=== PATIENT | male | born 1990 | race Caucasian/White ===

== ENCOUNTER 2017-05-26 13:54 | Inpatient (IN) | payer OTHER ==
[2017-05-26 15:58] VITALS: BMI 24.7
--- NOTE | 2017-05-26 20:28 | HP ---
Admission [facility] [place] [facility] Chief Complaint: SEEKING REHAB SERVICES TO ASSIST WITH COCAINE AND CANNABIS ADDICTION Allergies/Adverse Reactions: Allergies Allergy/AdvReac Type Severity Reaction Status Date / Time No Known Allergies Allergy Verified 05/26/17 20:19 History of Present Illness: 27 Y.O. MALE WITH COCAINE AND CANNABIS DEPENDENCE HERE FOR REHAB SERVICES. CLIENT REPORTS LONGEST CLEAN TIME 3-4 MONTHS. DENIES LEGALS. STATES LAST SUBSTANCE ABUSE TXMENT 1 YEAR AGO. Exam Limitations: No Limitations - Ebola screening Have you traveled outside of the country in the last 21 days: No Have you had contact with anyone from an Ebola affected area: No Have you been sick,other than usual withdrawal symptoms: No Do you have a fever: No - Review of Systems Constitutional: Chills, Loss of Appetite, Night Sweats, Changes in sleep EENT: reports: No Symptoms Reported Respiratory: reports: No Symptoms reported Cardiac: reports: No Symptoms Reported GI: reports: No Symptoms Reported : reports: No Symptoms Reported Musculoskeletal: reports: Back Pain, Neck Pain (R/T SCOLIOSIS), Other (SCOLIOIS) Integumentary: reports: No Symptoms Reported Neuro: reports: No Symptoms reported Endocrine: reports: No Symptoms Reported Hematology: reports: No Symptoms Reported Psychiatric: reports: Anxious, Depressed Other Systems: Reviewed and Negative Patient History - Patient Medical History Hx Anemia: No Hx Asthma: No Hx Chronic Obstructive Pulmonary Disease (COPD): No Hx Cancer: No Hx Cardiac Disorders: Yes (TACHYCARDIA ON METOPROLOL) Hx Congestive Heart Failure: No Hx Hypertension: Yes (METOPROLOL) Hx Hypercholesterolemia: No Hx Pacemaker: No HX Cerebrovascular Accident: No Hx Seizures: No Hx Dementia: No Hx Diabetes: No Hx Gastrointestinal Disorders: No Hx Liver Disease: No Hx Genitourinary Disorders: No Hx Sexually Transmitted Disorders: No Hx Renal Disease (ESRD): No Hx Thyroid Disease: No Hx Human Immunodeficiency Virus (HIV): No Hx Hepatitis C: No Hx Depression: Yes Hx Suicide Attempt: No Hx Bipolar Disorder: Yes Hx Schizophrenia: No Other Medical History: ANXIETY - Patient Surgical History Past Surgical History: No - PPD History Previous Implant?: Yes Documented Results: Negative w/o proof Implanted On Prior [facility] Admission?: No PPD to be Administered?: Yes - Smoking Cessation Smoking history: Current every day smoker Have you smoked in the past 12 months: Yes Cigars Per Day: 0 Hx Chewing Tobacco Use: No Initiated information on smoking cessation: Yes 'Breaking Loose' booklet given: 05/26/17 - Substance & Tx. History Hx Alcohol Use: No Hx Substance Use: Yes Substance Use Type: Cocaine, Marijuana Hx Substance Use Treatment: Yes (DOES NOT RECALL) - Substances Abused THC Route: Smoking Frequency: 1-3 times last 30 days Amount used: 1 JOINT Age of first use: 10 Date of Last Use: 05/19/17 COCAINE Route: Smoking Frequency: 3-6 times per week Amount used: $100 Age of first use: 14 Date of Last Use: 05/26/17 Family Disease History - Family Disease History Family Disease History: Diabetes: Grandparent, Other: Father (ALCOHOLIC IN RECOVERY), Sister (DRUGS IN RECOVERY) Admission Physical Exam S - Vital Signs Vital Signs: Vital Signs - 24 hr 05/26/17 15:56 Temperature 97.7 F Pulse Rate 60 Respiratory 18 Rate Blood Pressure 107/68 - Physical General Appearance: Yes: Appropriately Dressed, Anxious, Other (TALKATIVE) HEENTM: Yes: EOMI, Normocephalic, Normal Voice, MACARIO, Pharynx Normal Respiratory: Yes: Chest Non-Tender, Lungs Clear, Normal Breath Sounds, No Respiratory Distress, No Accessory Muscle Use Neck: Yes: No masses,lesions,Nodules, Supple, Trachea in good position Breast: Yes: Breast Exam Deferred Cardiology: Yes: Regular Rhythm, Regular Rate, S1, S2 Abdominal: Yes: Normal Bowel Sounds, Non Tender, Flat, Soft Genitourinary: Yes: Within Normal Limits Back: Yes: Normal Inspection Musculoskeletal: Yes: full range of Motion, Gait Steady Extremities: Yes: Normal Capillary Refill, Normal Inspection, Normal Range of Motion, Non-Tender Neurological: Yes: 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 NML intact, Fully Oriented, Alert, Motor Strength 5/5 Integumentary: Yes: Normal Color, Dry, Warm Lymphatic: Yes: Within Normal Limits - Diagnostic (1) Cocaine abuse, uncomplicated Current Visit: Yes Status: Chronic (2) Cannabis abuse, uncomplicated Current Visit: Yes Status: Chronic (3) Nicotine dependence Current Visit: Yes Status: Chronic Qualifiers: Nicotine product type: cigarettes Substance use status: uncomplicated Qualified Code(s): F17.210 - Nicotine dependence, cigarettes, uncomplicated (4) HTN (hypertension) Current Visit: Yes Status: Chronic Qualifiers: Hypertension type: essential hypertension Qualified Code(s): I10 - Essential (primary) hypertension (5) Tachycardia Current Visit: Yes Status: Chronic Cleared for Admission [facility] - Detox or Rehab Detox Regimen/Protocol: Not Applicable Claeared for Rehab Admission: Yes [facility] Breath Alcohol Content Breath Alcohol Content: 0 Urine Drug Screen - Results Drug Screen Negative: Yes Inpatient Rehab Admission - Initial Determination Are CD services needed?: Yes Free of communicable disease: Yes Not in need of hospitalization: Yes - Rehab Admission Criteria Previous failed treatment: Yes Poor recovery environment: Yes Comorbidities: Yes Lacks judgement: Yes Patient is meeting Inpatient Rehab admission criteria:: Yes
[2017-05-26] MEDS ORDERED: ACETAMINOPHEN 325 MG TABLET (FP) PO PRN (20:41)
[2017-05-26] MEDS ORDERED: MAGNESIUM CITRATE 300 ML BOTTLE PO PRN (20:41)
[2017-05-26] MEDS ORDERED: LOPERAMIDE HCL 2 MG CAPSULE PO PRN (20:41)
[2017-05-26] MEDS ORDERED: IBUPROFEN 400 MG TABLET (FP) PO PRN (20:41)
[2017-05-26] MEDS ORDERED: MAG HYDROX/AL HYDROX/SIMETH 30 ML UNIT-DOSE CUP PO PRN (20:41)
[2017-05-26] MEDS ORDERED: P-EPHED 60MG/TRIPROLIDI 2.5MG TABLET PO PRN (20:41)
[2017-05-26] MEDS ORDERED: MENTHOL/PHENOL 1 EACH UD MM PRN (20:41)
[2017-05-26] MEDS ORDERED: hydrOXYzine PAMOATE 50 MG CAPSULE (FP) PO PRN (20:41)
[2017-05-26] MEDS ORDERED: guaiFENesin/D-METHORPHAN HB 10 ML UNIT-DOSE CUPS PO PRN (20:41)
[2017-05-26] MEDS ORDERED: MAGNESIUM HYDROX 2400MG/30ML ORAL SUSPENSION 30 ML CUP PO PRN (20:41)
[2017-05-26] MEDS ORDERED: TUBERCULIN PPD 5 TU/0.1ML VIAL ID ONE (23:51)
[2017-05-26] MEDS: THIAMINE HCL 100 MG TABLET (FP) PO SCH (23:51)
[2017-05-27 02:19] LABS: URINE APPEARANCE SLCLOUDY; URINE BILIRUBIN NEGATIVE (NEGATIVE); URINE BLOOD NEGATIVE (NEGATIVE); URINE COLOR YELLOW; URINE GLUCOSE (UA) NEGATIVE (NEGATIVE); URINE KETONE NEGATIVE (NEGATIVE); URINE LEUK ESTERASE NEGATIVE (NEGATIVE); URINE NITRITE NEGATIVE (NEGATIVE); URINE PROTEIN NEGATIVE (NEGATIVE); URINE UROBILINOGEN NEGATIVE mg/dL (0.2-1.0)
[2017-05-27 10:07] LABS: HEMATOCRIT 42.5 % (35.4-49); HEMOGLOBIN 14.3 GM/dL (11.7-16.9); MCH 29.9 pg (25.7-33.7); MCHC 33.8 g/dl (32.0-35.9); MEAN CELL VOLUME 88.6 fl (80-96); MEAN PLT VOLUME 10.2 fl (7.5-11.1); PLATELET COUNT 163 K/MM3 (134-434); RDW 12.7 % (11.9-15.9); WHITE BLOOD COUNT 10.5 K/mm3 (4.0-10.0)
[2017-05-27 10:12] LABS: CHLORIDE 103 mmol/L (98-107); POTASSIUM 3.9 mmol/L (3.5-5.1); SODIUM 141 mmol/L (136-145)
[2017-05-27] MEDS: NICOTINE 14 MG/24 HOURS TOPICAL PATCH TD SCH (10:18)
[2017-05-27] MEDS: PRENATAL VITAMINS W/ FOLIC ACID TABLET (FP) PO SCH (10:18)
[2017-05-27 10:34] LABS: ALBUMIN 3.7 g/dl (3.4-5.0); ALK PHOS 57 U/L (45-117); ANION GAP 9 (8-16); BILIRUBIN,TOTAL 0.7 mg/dL (0.2-1.0); BLOOD UREA NITROGEN 18 mg/dL (7-18); CALCIUM 8.5 mg/dL (8.5-10.1); CO2 29 mmol/L (21-32); CREATININE 1.1 mg/dL (0.7-1.3); GLUCOSE,RANDOM 139 mg/dL (74-106); SGOT/AST 12 U/L (15-37); SGPT/ALT 22 U/L (12-78); TOT PROT 6.9 g/dl (6.4-8.2)
--- NOTE | 2017-05-27 11:05 | HP ---
Psychiatrist Admission - Data Date of interview: 05/27/17 Admission source: [facility] Identifying data: This is the first 5N inpatient rehabilitation admission for this 27 year old single male, unemployed and domiciled. Medical History: back pain, neck pain related to scoliosis, tachycardia , smokes cigarettes 10 a day. Psychiatric History: Patient reports first psychiatric contact at age of 6, to address hyperactivity, was treated with Ritalin, reports one involuntary hospitalization 2 years ago in [place] due to depressed mood and suicidal thoughts. Reports was diagnosed as Bipolar disorder and treated with buspar, seroquel and other medications, he reports he currently on adderall and klonopin. Patient is hyperproductive, unable to sleep. Physical/Sexual Abuse/Trauma History: Denies history of abuse. Vital Signs: Vital Signs - 24 hr 05/26/17 05/27/17 05/27/17 15:56 00:02 03:30 Temperature 97.7 F 97.5 F L Pulse Rate 60 73 Respiratory 18 18 16 Rate Blood Pressure 107/68 117/69 05/27/17 06:19 Temperature 97.9 F Pulse Rate 62 Respiratory 18 Rate Blood Pressure 99/72 Allergies/Adverse Reactions: Allergies Allergy/AdvReac Type Severity Reaction Status Date / Time No Known Allergies Allergy Verified 05/26/17 20:19 Date of last physical exam: 05/26/17 Concur with the findings of this exam: Yes - Substance Abuse/Tx History Hx Alcohol Use: No Hx Substance Use: Yes Substance Use Type: Cocaine, Marijuana Hx Substance Use Treatment: Yes (x 2 rehab.) Mental Status Exam - Mental Status Exam Alert and Oriented to: Time, Place Cognitive Function: Grossly Intact Patient Appearance: Well Groomed Mood: Hopeful, Euthymic Affect: Mood Congruent, Euthymic Patient Behavior: Appropriate, Cooperative Speech Pattern: Clear, Appropriate Voice Loudness: Normal Thought Process: Goal Oriented Thought Disorder: Not Present Hallucinations: Denies Suicidal Ideation: Denies Homicidal Ideation: Denies Insight/Judgement: Fair Sleep: Fair Appetite: Fair Muscle strength/Tone: Normal Gait/Station: Normal Psychiatric Findings - Problem List ([place] 1, 2,3) (1) Cocaine dependence Current Visit: Yes Status: Acute (2) Cannabis dependence Current Visit: Yes Status: Acute (3) Bipolar I disorder Current Visit: Yes Status: Acute (4) Nicotine dependence Current Visit: Yes Status: Chronic Qualifiers: Nicotine product type: cigarettes Substance use status: uncomplicated Qualified Code(s): F17.210 - Nicotine dependence, cigarettes, uncomplicated - Initial Treatment Plan Initial Treatment Plan: will add Gabapentin 100 mg po tid, Sroquel 25 mg po hs, indications and properties of medications discussed with the patient.
[2017-05-27] MEDS ORDERED: PNEUMOCOCCAL 23 VACCINE 0.5 ML VIAL IM ONE (12:00)
[2017-05-27] MEDS ORDERED: FLU VACCINE QUAD 60 MCG/0.5 ML (MDV 17-18) IM ONE (12:16)
[2017-05-27] MEDS ORDERED: PNEUMOC 13-VAL CONJ-DIP CRM/PF 0.5 ML DISP.SYRIN IM ONE (12:19)
[2017-05-27] MEDS: GABAPENTIN 100 MG CAPSULE (FP) PO SCH ×2 (13:52→21:56)
[2017-05-27] MEDS: NICOTINE POLACRILEX 2 MG GUM BC PRN (13:54)
--- NOTE | 2017-05-27 16:35 | EKG ---
Test Reason : Blood Pressure : / mmHG Vent. Rate : 062 BPM Atrial Rate : 062 BPM P-R Int : 146 ms QRS Dur : 104 ms QT Int : 400 ms P-R-T Axes : 068 071 055 degrees QTc Int : 406 ms NORMAL SINUS RHYTHM NORMAL ECG NO PREVIOUS ECGS AVAILABLE Confirmed by DENISSE CHIANG MD ([id number]) on 05/27/2017 4:35:29 PM Referred By: Confirmed By:DENISSE CHIANG MD
[2017-05-27] MEDS: THIAMINE HCL 100 MG TABLET (FP) PO SCH (21:56)
[2017-05-27] MEDS: QUEtiapine FUMARATE 25 MG TABLET (FP) PO SCH (21:58)
[2017-05-28] MEDS: GABAPENTIN 100 MG CAPSULE (FP) PO SCH ×3 (07:12→21:30)
[2017-05-28] MEDS: NICOTINE 14 MG/24 HOURS TOPICAL PATCH TD SCH (10:22)
[2017-05-28] MEDS: PRENATAL VITAMINS W/ FOLIC ACID TABLET (FP) PO SCH (10:22)
--- NOTE | 2017-05-28 11:17 | PN ---
[facility] Progress Note Note: patient reported he wants to restart Buspar for anxiety , will add 10 mg po bid ,
[2017-05-28] MEDS: busPIRone HCL 10 MG TABLET (FP) PO SCH ×2 (12:03→21:29)
--- NOTE | 2017-05-28 13:03 | PN ---
Progress Note (short form) - Note Progress Note: requests to be placed on metoprolol 100mg ER, as per his home medication. says he takes it after using cocaine to decrease palpitations also c/o whitish growth and itching between toes. denies chest pain, sob, cough, headache, palpitations, irregular heart rate, fever Vital Signs (72 hours) 05/26/17 05/27/17 05/27/17 15:56 00:02 03:30 Temperature 97.7 F 97.5 F L Pulse Rate 60 73 Respiratory 18 18 16 Rate Blood Pressure 107/68 117/69 05/27/17 05/27/17 05/28/17 06:19 21:00 00:30 Temperature 97.9 F Pulse Rate 62 75 75 Respiratory 18 18 Rate Blood Pressure 99/72 136/80 05/28/17 05/28/17 03:30 07:21 Temperature 97.6 F Pulse Rate 64 Respiratory 18 16 Rate Blood Pressure 116/78 PE Gen: NAD Feet: web spaces with scant thick white discharge, no erythema, no swelling, no open lesion, nontender. +DP b/l pulses. Assessment: recorded heart rate wnl, patient likely taking metoprolol for sedative effect rather than heart rate control Plan: will defer metoprolol for now, given cocaine use and normal heart rate. start gabapentin 200mg TID instead nystatin cream for fungal infection, aaa BID discussed with Dr. Worthington Active Medications Acetaminophen (Tylenol -) 650 mg PO Q4H PRN PRN Reason: PAIN Al Hydroxide/Mg Hydroxide (Mylanta Oral Suspension -) 30 ml PO Q6H PRN PRN Reason: DYSPEPSIA Buspirone HCl (Buspar -) 10 mg PO BID [facility] Last Admin: 05/28/17 12:03 Dose: 10 mg Eucalyptus/Menthol/Phenol/Sorbitol (Cepastat Lozenge -) 1 each MM Q4H PRN PRN Reason: SORE THROAT Gabapentin (Neurontin -) 200 mg PO TID [facility] Guaifenesin (Robitussin Dm -) 10 ml PO Q6H PRN PRN Reason: COUGH Hydroxyzine Pamoate (Vistaril -) 50 mg PO Q4H PRN PRN Reason: AGITATION Ibuprofen (Motrin -) 400 mg PO Q6H PRN PRN Reason: SEVERE PAIN Loperamide HCl (Imodium -) 4 mg PO Q6H PRN PRN Reason: DIARRHEA Magnesium Citrate (Citroma -) 300 ml PO Q48H PRN PRN Reason: CONSTIPATION Magnesium Hydroxide (Milk Of Magnesia -) 30 ml PO DAILY PRN PRN Reason: CONSTIPATION Nicotine (Nicoderm Patch -) 14 mg TD DAILY [facility] Last Admin: 05/28/17 10:22 Dose: 14 mg Nicotine Polacrilex (Nicorette Gum -) 2 mg BC Q2H PRN PRN Reason: NICOTINE REPLACEMENT RX Last Admin: 05/27/17 13:54 Dose: 2 mg Nystatin (Mycostatin Ointment -) 1 applic TP BID [facility] Stop: 06/04/17 14:29 Last Admin: 05/28/17 15:45 Dose: 1 applic Multivit/Folic Acid/Iron ( Vitamins ([facility]) -) 1 tab PO DAILY [facility] Last Admin: 05/28/17 10:22 Dose: 1 tab Pseudoephedrine/Triprolidine (Actifed -) 1 combo PO TID PRN PRN Reason: NASAL CONGESTION Quetiapine Fumarate (Seroquel -) 25 mg PO HS [facility] Last Admin: 05/27/17 21:58 Dose: 25 mg Thiamine HCl (Vitamin B1 -) 100 mg PO HS [facility] Last Admin: 05/27/17 21:56 Dose: 100 mg
[2017-05-28] MEDS: NYSTATIN 100000 UNIT/GM TOPICAL OINTMENT 15 GM TUBE TP SCH ×2 (15:45→21:29)
[2017-05-28] MEDS ORDERED: hydrOXYzine HCL 25 MG TABLET (FP) PO PRN (17:14)
[2017-05-28] MEDS: THIAMINE HCL 100 MG TABLET (FP) PO SCH (21:29)
[2017-05-28] MEDS: QUEtiapine FUMARATE 25 MG TABLET (FP) PO SCH (21:29)
[2017-05-29] MEDS: NICOTINE POLACRILEX 2 MG GUM BC PRN ×4 (06:53→20:18)
[2017-05-29] MEDS: GABAPENTIN 100 MG CAPSULE (FP) PO SCH ×3 (06:53→21:23)
[2017-05-29] MEDS: busPIRone HCL 10 MG TABLET (FP) PO SCH ×2 (11:33→21:23)
[2017-05-29] MEDS: NICOTINE 14 MG/24 HOURS TOPICAL PATCH TD SCH (11:33)
[2017-05-29] MEDS: NYSTATIN 100000 UNIT/GM TOPICAL OINTMENT 15 GM TUBE TP SCH ×2 (11:33→21:24)
[2017-05-29] MEDS: PRENATAL VITAMINS W/ FOLIC ACID TABLET (FP) PO SCH (11:33)
[2017-05-29] MEDS: THIAMINE HCL 100 MG TABLET (FP) PO SCH (21:23)
[2017-05-29] MEDS: QUEtiapine FUMARATE 25 MG TABLET (FP) PO SCH (21:23)
[2017-05-30] MEDS: GABAPENTIN 100 MG CAPSULE (FP) PO SCH ×3 (06:48→21:29)
[2017-05-30] MEDS: NICOTINE POLACRILEX 2 MG GUM BC PRN ×4 (06:48→22:03)
[2017-05-30] MEDS: PRENATAL VITAMINS W/ FOLIC ACID TABLET (FP) PO SCH (09:59)
[2017-05-30] MEDS: busPIRone HCL 10 MG TABLET (FP) PO SCH ×2 (09:59→21:28)
[2017-05-30] MEDS: NICOTINE 14 MG/24 HOURS TOPICAL PATCH TD SCH (09:59)
[2017-05-30] MEDS: NYSTATIN 100000 UNIT/GM TOPICAL OINTMENT 15 GM TUBE TP SCH (09:59)
[2017-05-30] MEDS: HYDROCORTISONE 1% TOPICAL CREAM 30 GM TUBE TP SCH ×2 (17:35→21:29)
[2017-05-30] MEDS: QUEtiapine FUMARATE 25 MG TABLET (FP) PO SCH (21:28)
[2017-05-30] MEDS: THIAMINE HCL 100 MG TABLET (FP) PO SCH (21:28)
[2017-05-31] MEDS: GABAPENTIN 100 MG CAPSULE (FP) PO SCH (06:50)
[2017-05-31] MEDS: NICOTINE POLACRILEX 2 MG GUM BC PRN (07:11)
[2017-05-31 07:12] VITALS: BP 104/66; PULSE 82; TEMP 96.2
== END 2017-05-31 09:12 | disposition left against medical advice (07) | DRG 770 ==
LOC: YASAS 13:54 → Y5N 22:22
PROVIDERS: ADMIT Psychiatry & Neurology Psychiatry; ATTEND Psychiatry & Neurology Psychiatry
PROC: HZ42ZZZ Group Counseling for Substance Abuse Treatment, Cognitive-Behavioral (ICD-10-PCS; principal; 2017-05-26)
DX: F14.20 Cocaine dependence, uncomplicated (principal); F12.20 Cannabis dependence, uncomplicated; F17.210 Nicotine dependence, cigarettes, uncomplicated; F31.89 Other bipolar disorder; I10 Essential (primary) hypertension; R00.0 Tachycardia, unspecified
CPT/HCPCS: 36415; 80053; 81003; 85027; 86593; 86803; 90688; 90732; 93005; 93010; G0008; G0009